=== PATIENT | male | born 1965 | race Caucasian/White ===

== ENCOUNTER 2022-07-25 19:47 | Emergency (ER) | payer OTHER ==
[2022-07-25] MEDS ORDERED: Amoxicillin 500 MG Cap ONE (20:00)
[2022-07-25] MEDS ORDERED: Lidocaine 1% 5 ML VIAL INJECT ONE (20:45)
== END 2022-07-25 20:15 | disposition home or self-care (01) ==
LOC: LB.ED 19:47
DX: S60.450A Superficial foreign body of right index finger, initial encounter (principal); W45.8XXA Other foreign body or object entering through skin, initial encounter
CPT/HCPCS: 99283; A9270-GY